=== PATIENT | female | born 1945 | race Caucasian/White ===

== ENCOUNTER 2023-06-01 19:07 | Inpatient (IN) | payer MEDICARE ==
[~2023-06-01] VITALS: Ht 160 cm; Wt 72.0 kg
[2023-06-01] MEDS: LORazepam 2 mg/ml vial IV ONE (21:01)
[2023-06-01] MEDS: normal saline 1000ML IV soln IVB ONE (21:06)
[2023-06-01 21:26] LABS: BASOPHILS # (AUTO) 0.2 X10'3 (0-0.2); BASOPHILS % (AUTO) 0.8 % (0-1); EOSINOPHILS % (AUTO) 0.1 % (0-6); HEMOGLOBIN 14.2 g/dl (12.0-16.0); LYMPHOCYTES # (AUTO) 0.7 X10'3 (1.1-4.8); LYMPHOCYTES % (AUTO) 3.3 % (21-51); MEAN CORPUSCULAR HEMOGLOBIN 29.6 PG (27.0-31.0); MEAN CORPUSCULAR HGB CONC 34.6 g/dL (33.0-36.5); MEAN CORPUSCULAR VOLUME 85.5 FL (78-98); MEAN PLATELET VOLUME 8.8 FL (7.4-10.4); MONOCYTES # (AUTO) 2.1 X10'3 (0-0.9); NEUTROPHILS # (AUTO) 17.7 X10'3 (1.8-7.7); NEUTROPHILS % (AUTO) 85.8 % (42-75); PLATELET COUNT 266 X10'3 (140-440); RED BLOOD COUNT 4.79 X10'6 (4.20-5.60); RED CELL DISTRIBUTION WIDTH 15.2 % (11.5-14.5); WHITE BLOOD COUNT 20.6 X10'3 (4.5-11.0)
[2023-06-01] MEDS: LORazepam 2 mg/ml vial IV STA (21:34)
[2023-06-01] MEDS: morphine 2 MG/ML inj. syringe IV STA (21:35)
[2023-06-01 21:39] LABS: ALBUMIN 3.5 G/DL (3.4-5.0); ANION GAP 10 (8-16); BLOOD UREA NITROGEN 29 MG/DL (7-18); BUN/CREATININE RATIO 32.2 (10.0-20.0); CALCIUM 8.9 MG/DL (8.5-10.1); CHLORIDE 101 MMOL/L (99-107); GLUCOSE 136 MG/DL (70-104); SODIUM 140 MMOL/L (135-145); TOTAL CARBON DIOXIDE 28.8 MMOL/L (24-32); eCRCL 45 ML/MIN; eGFR 61 ML/MIN
[2023-06-01] MEDS: vancomycin/NS 1 GM ADD-VANTAGE 250 ML IV ONE (22:00)
[2023-06-01 22:04] LABS: POTASSIUM 3.9 MMOL/L (3.5-5.1)
[2023-06-01 22:49] LABS: ETHANOL < 10 MG/DL (<10)
[2023-06-01] MEDS: normal saline 1000ml 1,000 ML IV ONE (23:02)
[2023-06-01] MEDS: haloperidol lactate 5mg/ml inj IM ONE (23:25)
[2023-06-01 23:48] LABS: GLUCOSE,CSF 91 MG/DL (40-75); TOTAL PROTEIN,CSF 55 MG/DL (30-60)
[2023-06-02] LABS: APPEARANCE,CSF CLEAR; CSF SUPERNATANT COLOR COLORLESS; CSF VOLUME 4 ML; TUBE# COUNTED 4
[2023-06-02 00:01] LABS: CSF WBC CT 2 /CU MM (0-5)
[2023-06-02 00:02] LABS: CSF RBC 2 /CU MM (0)
[2023-06-02] MEDS ORDERED: acetaminophen 325mg tablet PO PRN (01:55)
[2023-06-02] MEDS ORDERED: magnesium 4gm in 100ml NS 100 ML IV PRN (01:55)
[2023-06-02] MEDS ORDERED: mag hydrox/Alum hydrox/simeth 30ml oral suspension PO PRN (01:55)
[2023-06-02] MEDS ORDERED: magnesium hydroxide 30ml (MOM) UD suspension PO PRN (01:55)
[2023-06-02] MEDS ORDERED: potassium Cl 40MEQ/1/2NS 520ml 520 ML IV PRN (01:55)
[2023-06-02] MEDS ORDERED: potassium Cl 20 mEq SR tablet PO PRN ×2 (01:55)
[2023-06-02] MEDS ORDERED: ondansetron/PF 4mg/2ml inj IV PRN (01:55)
[2023-06-02] MEDS ORDERED: magnesium 2GM in 50ml NS 50 ML IV PRN (01:55)
[2023-06-02] MEDS: HYDROcodone/acetaminophen 10/325mg tab PO SCH (01:55)
[2023-06-02] MEDS ORDERED: magnesium Cl slow-release 64mg tablet PO PRN (01:55)
[2023-06-02] MEDS ORDERED: CefTRIAXone 2gm/D5W 50ml BAG 50 ML IV ONE (02:00)
[2023-06-02] MEDS: diazepam 5mg tablet PO ONE (02:16)
[2023-06-02] MEDS: CefTRIAXone 2gm/D5W 50ml BAG 50 ML IV SCH (02:16)
[2023-06-02] MEDS: normal saline 1000ml 1,000 ML IV SCH (02:19)
[2023-06-02] MEDS: hydrALAZINE 20mg/ml inj. IV ONE (02:54)
[2023-06-02 03:00] LABS: BILIRUBIN,URINE SMALL (Neg); CLARITY,URINE CLEAR (Clear); GLUCOSE, URINE NEGATIVE (Neg); KETONES,URINE TRACE mg/dl (Neg); LEUKOCYTE ESTERASE ,URINE NEGATIVE (Neg); NITRITES, URINE NEGATIVE (Neg); OCCULT BLOOD,URINE NEGATIVE (Neg); PH,URINE 6.5 (4.8-8.0); PROTEIN,URINE TRACE mg/dl (Neg)
[2023-06-02 03:06] LABS: COLOR,URINE DARK YELLOW (Yellow); UA COLLECTION TYPE CLN CATCH MIDSTREAM
[2023-06-02 03:07] LABS: HYALINE CASTS 0-3 /LPF (NEGATIVE); MUCUS STRANDS MANY /LPF (Neg); SQUAMOUS EPITHELIAL CELL,UR FEW /LPF (FEW)
[2023-06-02 03:08] LABS: BACTERIA,URINE 1+ /HPF (Neg); RBC,URINE 0-2 /HPF (0-2); WBC,URINE 0-4 /HPF (0-4)
[2023-06-02 03:14] LABS: URINE AMPHETAMINE SCREEN NEGATIVE (Neg); URINE BARBITUATE SCREEN NEGATIVE (Neg); URINE BENZODIAZEPINES SCREEN POSITIVE (Neg); URINE CANNABINOID SCREEN NEGATIVE (Neg); URINE COCAINE SCREEN NEGATIVE (Neg); URINE METHADONE SCREEN NEGATIVE (Neg); URINE OPIATE SCREEN POSITIVE (Neg); URINE PHENCYCLIDINE SCREEN NEGATIVE (Neg)
[2023-06-02] MEDS: haloperidol lactate 5mg/ml inj IM ONE (03:46)
[2023-06-02] MEDS: HYDROmorphone 1 mg/ml syringe IV ONE (04:13)
[2023-06-02] MEDS: aspirin 325mg tablet PO ONE (05:20)
[2023-06-02] MEDS: QUEtiapine 25mg tablet PO ONE (05:42)
[2023-06-02 06:40] LABS: FREE T4 (FREE THYROXINE) 1.52 NG/DL (0.73-1.40); THYROID STIMULATING HORMONE 0.18 ulU/ml (0.34-4.50)
[2023-06-02] MEDS: K and/or MAG REPLACEMENT MC SCH (08:00)
[2023-06-02] MEDS: apixaban 5mg tablet PO SCH (08:00)
[2023-06-02] MEDS: docusate sod 100mg capsule PO SCH (08:23)
[2023-06-02] MEDS: piperacillin/tazo 3.375gm/50ml 50 ML IV SCH (08:27)
[2023-06-02] MEDS ORDERED: PREG150C47 PO (08:39)
[2023-06-02] MEDS ORDERED: DILT-94 PO (08:39)
[2023-06-02] MEDS ORDERED: OXYC10TA47 (08:39)
[2023-06-02] MEDS ORDERED: VENL150C58 PO (08:39)
[2023-06-02] MEDS ORDERED: APIX5TAB3 PO (08:39)
[2023-06-02] MEDS ORDERED: MIRA25TA PO (08:39)
[2023-06-02] MEDS ORDERED: vancomycin/NS 1 GM ADD-VANTAGE 250 ML IV SCH (10:00)
[2023-06-02 11:30] VITALS: BP 153/62; PULSE 101; RESP 18; TEMP 98.1; O2SAT 98
[2023-06-02 12:00] VITALS: RESP 12; O2SAT 94
[2023-06-02] MEDS ORDERED: OXYC10TA47 PO (12:07)
[2023-06-02] MEDS: vancomycin/NS 1 GM ADD-VANTAGE 250 ML IV SCH (16:08)
[2023-06-02 18:00] VITALS: BP 155/66; PULSE 96; RESP 16; TEMP 97.8; O2SAT 99
[2023-06-02] MEDS ORDERED: apixaban 5mg tablet PO SCH (20:00)
[2023-06-02] MEDS: pregabalin 75mg capsule PO SCH (20:12)
[2023-06-02 22:00] VITALS: BP 166/65; PULSE 107; RESP 16; TEMP 97.5; O2SAT 98
[2023-06-02] MEDS: zolpidem 5mg tablet PO PRN (22:05)
[2023-06-02] MEDS: HYDROmorphone 1 mg/ml syringe IV PRN (23:37)
[2023-06-03 06:50] VITALS: BP 151/66; PULSE 101; RESP 18; TEMP 98.1; O2SAT 98
[2023-06-03 07:19] LABS: BASOPHILS % (AUTO) 0.3 % (0-1); EOSINOPHILS # (AUTO) 0.2 X10'3 (0-0.9); HEMATOCRIT 38.3 % (35.0-45.0); HEMOGLOBIN 12.8 g/dl (12.0-16.0); LYMPHOCYTES # (AUTO) 2.3 X10'3 (1.1-4.8); LYMPHOCYTES % (AUTO) 24.9 % (21-51); MEAN CORPUSCULAR HEMOGLOBIN 28.9 PG (27.0-31.0); MEAN CORPUSCULAR HGB CONC 33.4 g/dL (33.0-36.5); MEAN CORPUSCULAR VOLUME 86.7 FL (78-98); MEAN PLATELET VOLUME 7.9 FL (7.4-10.4); MONOCYTES # (AUTO) 1.1 X10'3 (0-0.9); MONOCYTES % (AUTO) 12.3 % (2-12); NEUTROPHILS # (AUTO) 5.5 X10'3 (1.8-7.7); NEUTROPHILS % (AUTO) 60.5 % (42-75); PLATELET COUNT 220 X10'3 (140-440); RED BLOOD COUNT 4.41 X10'6 (4.20-5.60); RED CELL DISTRIBUTION WIDTH 15.3 % (11.5-14.5); WHITE BLOOD COUNT 9.1 X10'3 (4.5-11.0)
[2023-06-03 07:46] LABS: ALANINE AMINOTRANSFERASE 47 U/L (12-78); ALBUMIN 2.6 G/DL (3.4-5.0); ALBUMIN/GLOBULIN RATIO 0.8 (1.1-1.5); ALKALINE PHOSPHATASE 64 IU/L (46-116); ANION GAP 7 (8-16); ASPARTATE AMINO TRANSFERASE 38 U/L (10-37); BILIRUBIN,TOTAL 0.6 MG/DL (0.1-1.0); BLOOD UREA NITROGEN 14 MG/DL (7-18); BUN/CREATININE RATIO 18.7 (10.0-20.0); CALCIUM 8.2 MG/DL (8.5-10.1); CHLORIDE 108 MMOL/L (99-107); CREATININE 0.75 MG/DL (0.40-0.90); FREE T4 (FREE THYROXINE) 1.46 NG/DL (0.73-1.40); GLUCOSE 92 MG/DL (70-104); MAGNESIUM 2.3 MG/DL (1.5-2.4); PHOSPHORUS 2.9 MG/DL (2.3-4.5); POTASSIUM 3.6 MMOL/L (3.5-5.1); SODIUM 143 MMOL/L (135-145); TOTAL CARBON DIOXIDE 27.9 MMOL/L (24-32); TOTAL PROTEIN 5.7 G/DL (6.4-8.2); eCRCL 54 ML/MIN; eGFR 75 ML/MIN
[2023-06-03 08:10] VITALS: RESP 18; O2SAT 98
[2023-06-03] MEDS: diltiazem CD 120mg capsule (once-daily) PO SCH (08:38)
[2023-06-03] MEDS: venlafaxine XR 75mg capsule (Q24H) PO SCH (08:39)
[2023-06-03 08:41] VITALS: RESP 18
[2023-06-03] MEDS: mirabegron 25mg ER tablet PO SCH (08:46)
[2023-06-04] MEDS ORDERED: VANCOMYCIN LEVEL IJ ONE (03:30)
[2023-06-07 01:12] LABS: HSV 1 PCR Negative (Negative); HSV 2 PCR Negative (Negative)
== END 2023-06-03 12:20 | disposition home or self-care (01) | DRG 551 ==
LOC: ER 19:08 → ED HOLD 06-02 01:55 → EDBEDREQ 06-02 09:57 → ORTHO 4S 06-02 10:52
PROVIDERS: ADMIT Internal Medicine; ATTEND Family Medicine
PROC: 009U3ZX Drainage of Spinal Canal, Percutaneous Approach, Diagnostic (ICD-10-PCS; principal; 2023-06-02)
DX: S32.018A Other fracture of first lumbar vertebra, initial encounter for closed fracture (principal); I21.A1 Myocardial infarction type 2; S22.068A Other fracture of T7-T8 thoracic vertebra, initial encounter for closed fracture; I48.20 Chronic atrial fibrillation, unspecified; G93.40 Encephalopathy, unspecified; M79.7 Fibromyalgia; F32.A Depression, unspecified; F41.9 Anxiety disorder, unspecified; F19.959 Other psychoactive substance use, unspecified with psychoactive substance-induced psychotic disorder, unspecified; T38.0X5A Adverse effect of glucocorticoids and synthetic analogues, initial encounter; E03.9 Hypothyroidism, unspecified; K57.30 Diverticulosis of large intestine without perforation or abscess without bleeding; M40.204 Unspecified kyphosis, thoracic region; D72.829 Elevated white blood cell count, unspecified; W18.39XA Other fall on same level, initial encounter; G47.30 Sleep apnea, unspecified; G89.29 Other chronic pain; Z88.2 Allergy status to sulfonamides; Y93.89 Activity, other specified; Y92.89 Other specified places as the place of occurrence of the external cause; Y99.8 Other external cause status; Z79.01 Long term (current) use of anticoagulants
CPT/HCPCS: 36415; 62270; 70450; 71045; 72125; 72128; 72131; 76536; 80048; 80053; 80305; 80320; 81001; 82140; 82945; 82948; 83605; 83735; 84100; 84145; 84157; 84439; 84443; 84484; 85025; 87040; 87081; 87529; 89051; 93005; 96361; 96365; 96375; 96376; 99285; G0378; J0360; J0696; J1170; J1630; J2060; J2270; J2543; J3370; J7030; J7121